=== PATIENT | female | born 1980 | race Caucasian/White ===

== ENCOUNTER 2020-03-06 00:52 | Emergency (ER) | payer MEDICAID ==
[~2020-03-06] VITALS: Ht 175.3 cm; Wt 72.6 kg
[2020-03-06 01:01] VITALS: BP_SYST 129
[2020-03-06] MEDS ORDERED: ACETAMINOPHEN 500 MG TABLET PO ONE (01:30)
[2020-03-06] MEDS ORDERED: ONDANSETRON HCL 4 MG/2 ML VIAL IVP ONE (01:30)
[2020-03-06] MEDS ORDERED: NACL 0.9% 1,000 ML IV ONE (01:30)
[2020-03-06 01:36] LABS: BILIRUBIN,URINE NEGATIVE (NEGATIVE); CLARITY/URINE SL CLOUDY (CLEAR); COLOR,URINE YELLOW (YELLOW); GLUCOSE,URINE 1+ (NEGATIVE); KETONES,URINE NEGATIVE (NEGATIVE); LEUKOCYTE ESTERASE ,URINE TRACE (NEGATIVE); NITRITE, URINE POSITIVE (NEGATIVE); PROTEIN URINE NEGATIVE (NEGATIVE); UROBILINOGEN,URINE 0.2 (0.2-1.0)
[2020-03-06 02:11] LABS: BASOPHILS % (AUTO) 0.3 % (0.0-2.0); EOSINOPHILS # (AUTO) 0.2 K/uL (0.0-0.4); EOSINOPHILS % (AUTO) 1.3 % (0.0-4.0); HEMATOCRIT 33.9 % (36-48); HEMOGLOBIN 11.3 g/dL (12.0-16.0); LYMPHOCYTES # (AUTO) 3.9 K/uL (1.0-5.5); LYMPHOCYTES % (AUTO) 32.1 % (20.5-51.5); MEAN CORPUSCULAR HEMOGLOBIN 31 pg (27-31); MEAN CORPUSCULAR HGB CONC 34 % (32-36); MEAN CORPUSCULAR VOLUME 91 fL (79.0-98.0); MONOCYTES # (AUTO) 1.1 K/uL (0.0-1.0); MONOCYTES % (AUTO) 8.7 % (1.7-9.3); NEUTROPHILS % (AUTO) 57.6 % (40.0-70.0); PLATELET COUNT (AUTO) 227 K/uL (130-430); RED BLOOD CELL COUNT(AUTO) 3.73 MIL/uL (4.2-6.2); RED CELL DISTRIBUTION WIDTH 13.5 % (9.0-15.0); WHITE BLOOD COUNT (AUTO) 12.2 K/uL (4.8-10.8)
[2020-03-06 02:57] LABS: CALCIUM 8.7 mg/dL (8.4-11.0); CREATININE 0.61 mg/dL (0.55-1.30); POTASSIUM 3.5 mmol/L (3.5-5.1)
[2020-03-06 02:59] LABS: BLOOD, URINE TRACE (NEGATIVE)
[2020-03-06 03:01] LABS: BACTERIA,URINE MANY /HPF (None Seen)
[2020-03-06] MEDS ORDERED: cephALEXin 500 MG CAPSULE PO ONE (03:15)
[2020-03-06 03:25] LABS: ALBUMIN 3.4 g/dL (3.4-4.8); TOTAL BILIRUBIN 0.2 mg/dL (0.0-1.0)
[2020-03-06 03:35] VITALS: BP_SYST 129
== END 2020-03-06 03:35 | disposition home or self-care (01) ==
LOC: SED 00:52
DX: O23.41 Unspecified infection of urinary tract in pregnancy, first trimester (principal); O26.891 Other specified pregnancy related conditions, first trimester; R42 Dizziness and giddiness; Z3A.01 Less than 8 weeks gestation of pregnancy
CPT/HCPCS: 36415; 76801; 80053; 81000; 81025; 84702; 85025; 87086; 96361; 96374; 99284; J2405; J7030